=== PATIENT | male | born 1980 | race Caucasian/White ===

== ENCOUNTER → 2020-06-24 | Outpatient (CLI) | payer OTHER ==
[~2020-06-24] MED LIST: MELO15TA28 PO; VENL150C43 PO
== END ==
LOC: M LABSMTC 12:04
PROVIDERS: ATTEND Ophthalmology
DX: Z01.812 Encounter for preprocedural laboratory examination (principal); Z20.822 Contact with and (suspected) exposure to COVID-19

== ENCOUNTER 2020-06-29 06:16 | Day surgery (SDC) | payer OTHER ==
[~2020-06-29] VITALS: Ht 177.8 cm; Wt 93.0 kg
[2020-06-29] MEDS ORDERED: POVIDONE-IODINE 5% OPHTH PREP SOL 30ML As Ordered ONE (06:30)
[2020-06-29] MEDS ORDERED: DUOVISC (0.50ML VISCOAT/0.55ML PROVISC) OPHTH KIT As Ordered ONE (06:31)
[2020-06-29] MEDS ORDERED: CEFUROXIME 1MG/0.1ML INTRACAMERAL INJ As Ordered ONE (06:32)
[2020-06-29] MEDS ORDERED: BSS IRR 500ML/OMIDRIA 4ML IRR BAG (OR ONLY) As Ordered ONE (06:46)
[2020-06-29] MEDS ORDERED: mitoMYcin 0.2 MG/VIAL KIT FOR OPHTHALMIC USE (J7315 PER 0.2MG) As Ordered ONE (07:01)
[2020-06-29] MEDS ORDERED: LIDOCAINE 2% W/EPINEPHRINE 20ML VIAL **PRES FREE As Ordered ONE (07:02)
[2020-06-29] MEDS ORDERED: fentaNYL 100 MCG/2 ML INJECTION (J3010) As Ordered ONE (07:13)
[2020-06-29] MEDS ORDERED: MIDAZOLAM INJ 2MG/2ML VIAL (J2250 PER 1MG) As Ordered ONE (07:14)
[2020-06-29] MEDS ORDERED: TOBRADEX OPHTH OINT 3.5 GM As Ordered ONE (07:16)
[2020-06-29] MEDS ORDERED: PROPARACAINE 0.5% OPHTH SOL 15ML As Ordered ONE (07:31)
[2020-06-29] MEDS ORDERED: propofoL 200 MG/20 ML VIAL As Ordered ONE (07:36)
[2020-06-29] MEDS ORDERED: GLYCOPYRROLATE INJ 0.2 MG/ML 2 ML VIAL As Ordered ONE (07:36)
[2020-06-29] MEDS ORDERED: ONDANSETRON 4MG/2ML VIAL As Ordered ONE (08:23)
[2020-06-29] MEDS ORDERED: ONDANSETRON 4MG/2ML VIAL IV PRN (08:45)
[2020-06-29 08:50] VITALS: BP 130/77
--- NOTE | 2020-06-30 14:52 | RO ---
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 POSTOPERATIVE DIAGNOSIS: Peripheral progressive pterygium of the left eye. PROCEDURE: Excision of peripheral progressive pterygium of the left eye with the use of conjunctival autograft and Tisseel glue. 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 SPECIMEN: Pterygium left eye. DESCRIPTION OF PROCEDURE: The patient was seen and identified in the preoperative area. The consent was reviewed and the surgical eye was marked. The patient was then transferred to the operating room. The eye was prepped and draped in a sterile fashion. Tegaderm was used to isolate the upper and lower eyelids and a wire lid speculum was placed. The patient received topical anesthetic to the surface of the surgical eye. Sharp tip Sharon forceps were used to elevate the nasal pterygium from the corneal surface and this was excised anterior to posterior in fashion. The pterygium head was sent to pathology for an examination. Careful dissection of the pterygium body was performed and any visible Tenon's capsule that was removed. There was approximately a 5 mm conjunctival defect after the pterygium was removed. Gentle wet field cautery was applied to the surface of the scleral bed to stop any bleeding vessels. Attention was turned to the superior conjunctiva. The eye was rotated downwards. Anesthesia was injected into the subconjunctival space to elevate the conjunctiva. An area of 5 x 7 mm was measured with a marking pen and then this area was excised. Careful attention was paid to the preparation of the conjunctival graft to not remove any Tenon's capsule and that the graft remained as thin as possible. The graft was then rotated into position of the conjunctival defect where the pterygium had been removed. Four sutures were placed. Two single interrupted 10-nylon sutures were placed at the corneal limbus to tack the autograft into position and then, two Vicryl sutures were placed at the posterior corners to further attach the graft into position. Tisseel glue was placed very lightly over the autograft and then, this was smoothed into position with bent forceps until the graft was in good position. Gentle niko polishing was performed on the corneal surface until a smooth surface was achieved. The patient tolerated the procedure very well. A mid __ contact lens was placed over the surface of the eye. The wire lid speculum and drapes were removed. A shield was placed and the patient was discharged to the PACU in stable condition.
== END 2020-06-29 09:11 | disposition home or self-care (01) ==
LOC: M SDC 06:16
PROVIDERS: ATTEND Ophthalmology
DX: H11.052 Peripheral pterygium, progressive, left eye (principal)
CPT/HCPCS: 65426; 88302; A6024; J2250; J2405; J3010

== ENCOUNTER → 2022-11-05 | Outpatient (CLI) | payer OTHER | LOC: M PLAIMG 06:35 | PROVIDERS: ATTEND Nurse Practitioner Family | DX: M51.16 Intervertebral disc disorders with radiculopathy, lumbar region (principal) ==